=== PATIENT | male | born 1950 | race Caucasian/White ===

== ENCOUNTER → 2016-12-05 | Day surgery (SDC) | payer MEDICARE ==
[~2016-12-05] MED LIST: Acetaminophen TAB* 325 MG PO PRN; Buffered Lidocaine 1% SYR 3ML* 3 ML/SYR SYRINGE INTRADERM ONE; Bupivacaine 0.5% SDV PF* 30 ML VIAL ONE; Bupivacaine 0.5% W/EPI SDV* 30 ML VIAL ONE; Dexamethasone IV* 4 MG/ML 1 ML (4 MG) ONE; DiMENhydriNATE IV* 50 MG/ML VIAL IV PUSH PRN; Famotidine IV* 10 MG/ML 2 ML (20 mg) ONE; HYDROmorphone INJ* 1 MG/ML CARPUJECT SYRINGE IV PRN; Ketorolac INJ* 30 MG/ML 1 ML VIAL ONE; Lidocaine 1% INJ* 10 MG/ML 30 ML SDV ONE; Lidocaine 2% PF * 5 ML VIAL ONE; Midazolam* 1 MG/ML 2 ML VIAL (2 MG) ONE; NS 0.9% 1000 ML* 1,000 ML IV SCH; Ondansetron INJ* 2 MG/ML VIAL IV PRN; PROCHLORPERAZINE INJ 5 MG/ML 2 ML VIAL IV PRN; Propofol* 10 MG/ML 20 ML BTL IV PUSH ONE; ceFAZolin 2 GM PREMIX (*) 2 GM/50 ML BAG IVPB ONE; fentaNYL* 50 MCG/ML 2 ML VIAL (100 MCG VIAL) IV PRN; fentaNYL* 50 MCG/ML 2 ML VIAL (100 MCG VIAL) ONE
[2016-12-05 16:45] VITALS: BP 141/93
--- NOTE | 2016-12-06 06:17 | OP ---
DATE OF OPERATION: 12/05/16 - [facility] DATE OF : 52 SURGEON: Gilmer Garcia MD LOCKSTITCH SHOULDER JOINER: Marleen Mina NP ANESTHESIOLOGIST: Dr. Kwok. ANESTHESIA: General anesthetic, local infiltration. PRE-OP DIAGNOSIS: Umbilical hernia. POST-OP DIAGNOSIS: Umbilical hernia. OPERATIVE PROCEDURE: Open repair of umbilical hernia with mesh. DESCRIPTION OF PROCEDURE: The patient was supine on the operative table. After adequate general anesthetic, compression stockings, Juan Hugger warmer, and intravenous antibiotics, the central abdomen was prepped with antiseptic, draped in a sterile fashion. Local infiltrative anesthesia was administered. An infraumbilical curvilinear incision of about 4 cm was created and a hernia of about 4 cm was identified. This was dissected free and reduced. The hernia defect was about 3 cm. The preperitoneal plane was developed and a Ventralex 8- cm underlay patch was put into place and sutured up underneath using interrupted sutures of 0 Polysorb. This created excellent placement of the patch. The fascia was then closed over top using 0 Polysorb. Umbilical skin was tacked back down with 3-0 Polysorb, which was also used in the subcutaneum and then skin was closed with 5-0 Polysorb followed by Steri-Strips. He tolerated the procedure well, was awake and brought to Recovery in good condition. No complications. No drains. No pathologic specimens. Sponge and instrument counts correct. Estimated blood loss was 10 mL. CC: Gilmer Garcia MD; Bernarda Hubbard MD* [id number]/[facility] #: [id number] [facility]
== END | disposition home or self-care (01) ==
LOC: OR 11:15
PROVIDERS: ATTEND Surgery
DX: K42.9 Umbilical hernia without obstruction or gangrene (principal); J45.909 Unspecified asthma, uncomplicated; F17.210 Nicotine dependence, cigarettes, uncomplicated
CPT/HCPCS: C1781; J0690; J1100; J1885; J2250; J2704; J3010

== ENCOUNTER 2019-05-12 10:54 | Day surgery (SDC) | payer MEDICARE ==
[~2019-05-12 10:54] MED LIST changes: -Acetaminophen TAB* 325 MG PO PRN; -Buffered Lidocaine 1% SYR 3ML* 3 ML/SYR SYRINGE INTRADERM ONE; +Buffered Lidocaine 1% SYRIN* 1 ML/SYRINGE INTRADERM ONE; -Bupivacaine 0.5% SDV PF* 30 ML VIAL ONE; -Bupivacaine 0.5% W/EPI SDV* 30 ML VIAL ONE; -Dexamethasone IV* 4 MG/ML 1 ML (4 MG) ONE; -DiMENhydriNATE IV* 50 MG/ML VIAL IV PUSH PRN; +Famotidine IV* 10 MG/ML 2 ML (20 mg) IV ONE; -Famotidine IV* 10 MG/ML 2 ML (20 mg) ONE; -HYDROmorphone INJ* 1 MG/ML CARPUJECT SYRINGE IV PRN; -Ketorolac INJ* 30 MG/ML 1 ML VIAL ONE; +Lactated Ringers 1000 ML Bag* 1,000 ML IV SCH; -Lidocaine 1% INJ* 10 MG/ML 30 ML SDV ONE; -Lidocaine 2% PF * 5 ML VIAL ONE; -Midazolam* 1 MG/ML 2 ML VIAL (2 MG) ONE; -NS 0.9% 1000 ML* 1,000 ML IV SCH; -Ondansetron INJ* 2 MG/ML VIAL IV PRN; -PROCHLORPERAZINE INJ 5 MG/ML 2 ML VIAL IV PRN; -Propofol* 10 MG/ML 20 ML BTL IV PUSH ONE; -ceFAZolin 2 GM PREMIX (*) 2 GM/50 ML BAG IVPB ONE; -fentaNYL* 50 MCG/ML 2 ML VIAL (100 MCG VIAL) IV PRN; -fentaNYL* 50 MCG/ML 2 ML VIAL (100 MCG VIAL) ONE
[2019-05-12] MEDS ORDERED: Famotidine IV* 10 MG/ML 2 ML (20 mg) ONE (11:03)
[2019-05-12] MEDS ORDERED: Lidocaine 2% MPF* 2 ML VIAL ONE (12:40)
[2019-05-12] MEDS ORDERED: Ondansetron INJ* 2 MG/ML VIAL ONE (12:40)
[2019-05-12] MEDS ORDERED: Dexamethasone IV* 4 MG/ML 1 ML (4 MG) ONE (12:40)
[2019-05-12] MEDS ORDERED: Propofol* 10 MG/ML 20 ML BTL ONE (12:40)
[2019-05-12] MEDS ORDERED: Midazolam* 1 MG/ML 5 ML VIAL (5 MG) ONE (12:41)
[2019-05-12] MEDS ORDERED: fentaNYL* 50 MCG/ML 2 ML VIAL (100 MCG VIAL) ONE (12:41)
[2019-05-12] MEDS ORDERED: Lidocaine 2% w/ EPI 1:200,000* 20 ML VIAL ONE (13:00)
[2019-05-12] MEDS ORDERED: Oxymetazoline 0.05% NASAL SPR* 15 ML BTL ONE (13:04)
[2019-05-12] MEDS ORDERED: Levalbuterol 0.63MG/3ML NEB* UNIT OF USE INH PRN (13:14)
[2019-05-12] MEDS ORDERED: oxyCODONE/Acetamin 5/325 MG* TAB PO PRN (13:14)
[2019-05-12] MEDS ORDERED: fentaNYL* 50 MCG/ML 2 ML VIAL (100 MCG VIAL) IV PRN (13:14)
[2019-05-12] MEDS ORDERED: Naloxone* 0.4 MG/ML 1 ML VIAL IV PRN (13:14)
[2019-05-12] MEDS ORDERED: Ondansetron INJ* 2 MG/ML VIAL IV PRN (13:14)
--- NOTE | 2019-05-12 14:43 | OP ---
OPERATIVE REPORT: DATE OF OPERATION: 05/12/19 DATE OF : 52 SURGEON: Jose Enriquez MD. PRE-OP DIAGNOSES: Deviated septum and hypertrophied nasal turbinates with nasal dyspnea. POST-OP DIAGNOSES: Deviated septum and hypertrophied nasal turbinates with nasal dyspnea. OPERATIVE PROCEDURE: Septoplasty and submucosal resection of the inferior turbinates. BRIEF HISTORY: This 69-year-old gentleman with previous history of nasal trauma, having difficulty b reathing through the nose, obvious nasal deflection with some compensatory hypertrophy of the turbina jaci. DESCRIPTION OF PROCEDURE: The patient was taken to the operating room, general anesthesia was given, and the patient was intubated. Nose was decongested with Afrin-placed pledgets. Lidocaine 2% with epinephrine was placed in the submucosal space of both septum and the inferior turbinates. Left diallo transfixion incision was created. Mucoperichondrial flap was elevated. Quadrangular cartilage was th en disarticulated along the vomer-ethmoidal complex along the posterior maxillary crest. The cartila ge was so skewed that I did not feel that just resecting it out in situ would be helpful. Therefore, I resected a portion, leaving an adequate stripe both superiorly and anteriorly and resecting out th e significantly deflected piece. This was scored and morcellized and then replaced as best as rani corado in the midline. Multiple mattress sutures were placed to secure it in place. The hemitransfixion incision was closed. Leonard splints were applied to secure the mucosa back into place. Submucosal resection of the inferior turbinates was carried out by elevating the submucosal t issue on both sides and then subsequently resecting out the submucosal bone and submucosal tissue. A fter cauterization, once hemostasis was obtained, the patient was awakened, extubated, and sent to [facility] recovery room in stable condition. COUNTS: Instrument and sponge counts were correct. BLOOD LOSS: Minimal. [id number]/[id number] #: [id number]
[2019-05-12 15:02] VITALS: BP 163/107
== END 2019-05-12 15:23 | disposition home or self-care (01) ==
LOC: OR 10:54
PROVIDERS: ATTEND Otolaryngology
DX: J34.2 Deviated nasal septum (principal); J34.3 Hypertrophy of nasal turbinates; I10 Essential (primary) hypertension; N40.0 Benign prostatic hyperplasia without lower urinary tract symptoms; F17.210 Nicotine dependence, cigarettes, uncomplicated; J44.9 Chronic obstructive pulmonary disease, unspecified; I34.0 Nonrheumatic mitral (valve) insufficiency
CPT/HCPCS: A9270-GY; J1100; J2250; J2405; J2704; J3010